=== PATIENT | male | born 1985 | race Caucasian/White ===

== ENCOUNTER 2016-06-14 15:15 | Emergency (ER) | payer OTHER ==
[~2016-06-14] VITALS: Ht 165.1 cm; Wt 80.1 kg
[~2016-06-14 15:15] MED LIST: LANTUS 10100 UNITS/ SC; METHADONE 22 MG/1 ML PO; NICOTINE PATCH1 EAC2 TD; NOVOLOG PE100 UNITS/ SC; PROZAC40 MG PO
[2016-06-14 15:52] LABS: POINT-OF-CARE METER ID UU13113778
[2016-06-14] MEDS ORDERED: METHADONE 22 MG/1 ML PO (16:40)
[2016-06-14 17:05] LABS: HEMATOCRIT 38.7 % (38.0-50.0); MCH 31.8 PG (29.0-34.0); MCHC 33.3 G/DL (30.0-36.0); MCV 95.3 FL (86-99); MEAN PLAT.VOLUME 9.9 uM^3 (9.0-12.4); PLATELET COUNT 381 K/uL (156-360); RBC DIS.WIDTH-CV 11.9 % (11.8-14.6); RBC DIS.WIDTH-SD 41.5 % (39-53); RED BLOOD COUNT 4.06 M/uL (4.00-5.50); WHITE BLOOD COUNT 8.5 K/uL (4.1-10.2)
[2016-06-14 17:14] LABS: CHLORIDE 95 mEq/L (99-109); POTASSIUM 4.1 mEq/L (3.7-5.4); SODIUM 136 mEq/L (136-147)
[2016-06-14 17:16] LABS: GLUCOSE 335 mg/dL (70-99)
[2016-06-14 17:17] LABS: ANION GAP 12 MEQ/L (2-14)
[2016-06-14 17:19] LABS: SERUM ETHYL ALCOHOL < 10 mg/dL
[2016-06-14 17:20] LABS: GFR ESTIMATE (CALCULATED) > 59 mL/min/
[2016-06-14 17:21] LABS: UREA NITROGEN (BUN) 14 mg/dL (9-23)
[2016-06-14 21:07] LABS: ADD MIUA? NO; BILIRUBIN NEGATIVE; BLOOD NEGATIVE; COLOR YELLOW ((YELLOW)); GLUCOSE (STRIP) >=500; KETONES 5; LEUKOCYTES NEGATIVE; NITRITE NEGATIVE; PROTEIN (STRIP) NEGATIVE; SPECIFIC GRAVITY 1.027 (1.000-1.030); UCUL ADDED? NO; UROBILINOGEN 0.2 MG/DL (0.2-1.0)
[2016-06-14 21:25] LABS: AMPHETAMINE NEGATIVE (500 ng/mL); BARBITURATES NEGATIVE (200 ng/mL); BENZODIAZEPINES NEGATIVE (150 ng/mL); COCAINE NEGATIVE (150 ng/mL); INTERNAL CONTROLS VALID? YES; METHADONE PRESUMPTIVE POSITIVE (200 ng/mL); METHAMPHETAMINE NEGATIVE (500 ng/mL); OPIATES (MORPHINE) NEGATIVE (100 ng/mL); OXYCODONE NEGATIVE (100 ng/mL); PHENCYCLIDINE NEGATIVE (25 ng/mL); PROPOXYPHENE NEGATIVE (300 ng/mL); THC CANNABINOIDS NEGATIVE (50 ng/mL); TRICYCLIC ANTIDEPRESSANTS NEGATIVE (300 ng/mL)
[2016-06-14] MEDS ORDERED: NARCAN4 MG NS (21:51)
[2016-06-14 22:03] VITALS: BP 110/72
== END 2016-06-14 22:05 | disposition home or self-care (01) ==
LOC: EME 15:15
PROVIDERS: Emergency Medicine
DX: T40.3X1A Poisoning by methadone, accidental (unintentional), initial encounter (principal); R41.82 Altered mental status, unspecified; E10.65 Type 1 diabetes mellitus with hyperglycemia; F17.200 Nicotine dependence, unspecified, uncomplicated; F11.20 Opioid dependence, uncomplicated; Z79.4 Long term (current) use of insulin
CPT/HCPCS: 80048; 81003; 82948; 85027; 93005; 99281; 99284; G0480

== ENCOUNTER 2016-06-15 12:35 | Emergency (ER) | payer OTHER ==
[~2016-06-15] VITALS: Ht 165.1 cm; Wt 80.1 kg
[~2016-06-15 12:35] MED LIST changes: +NARCAN4 MG NS
[2016-06-15 13:45] LABS: POINT-OF-CARE METER ID UU13113778
[2016-06-15 14:16] LABS: HEMATOCRIT 40.4 % (38.0-50.0); MCH 31.6 PG (29.0-34.0); MCHC 32.9 G/DL (30.0-36.0); MEAN PLAT.VOLUME 10.2 uM^3 (9.0-12.4); PLATELET COUNT 350 K/uL (156-360); RBC DIS.WIDTH-CV 11.8 % (11.8-14.6); RBC DIS.WIDTH-SD 41.5 % (39-53); RED BLOOD COUNT 4.21 M/uL (4.00-5.50); WHITE BLOOD COUNT 7.6 K/uL (4.1-10.2)
[2016-06-15 14:17] LABS: CARBON DIOXIDE (BICARBONATE) 33.2 MEQ/L (20-31)
[2016-06-15 14:24] LABS: CHLORIDE 93 mEq/L (99-109); SODIUM 132 mEq/L (136-147)
[2016-06-15 14:28] LABS: ANION GAP 12 MEQ/L (2-14); POTASSIUM 5.1 mEq/L (3.7-5.4); TOTAL BILIRUBIN 2.1 mg/dL (0.0-1.0)
[2016-06-15 14:30] LABS: ALKALINE PHOSPHATASE 112 IU/L (3-129); GFR ESTIMATE (CALCULATED) > 59 mL/min/
[2016-06-15 14:31] LABS: UREA NITROGEN (BUN) 17 mg/dL (9-23)
[2016-06-15 14:35] LABS: GLUCOSE 590 mg/dL (70-99)
[2016-06-15 15:12] LABS: ADD MIUA? NO; BILIRUBIN NEGATIVE; BLOOD NEGATIVE; COLOR YELLOW ((YELLOW)); GLUCOSE (STRIP) >=500; KETONES 5; LEUKOCYTES NEGATIVE; NITRITE NEGATIVE; PROTEIN (STRIP) NEGATIVE; SPECIFIC GRAVITY 1.027 (1.000-1.030); UCUL ADDED? NO; UROBILINOGEN 0.2 MG/DL (0.2-1.0)
[2016-06-15 16:12] LABS: INFLUENZA A VIRAL ANTIGEN NEGATIVE; INFLUENZA B VIRAL ANTIGEN NEGATIVE
[2016-06-15 17:09] LABS: POINT-OF-CARE METER ID UU13113702
[2016-06-15 18:10] VITALS: BP 105/60
[2016-06-16 12:37] LABS: POINT-OF-CARE METER ID UU13113702
[2016-06-16] MEDS ORDERED: LANTUS 10100 UNITS/ SC (20:49)
== END 2016-06-15 18:12 | disposition home or self-care (01) ==
LOC: EME 12:35
PROVIDERS: Nurse Practitioner Family
DX: E11.65 Type 2 diabetes mellitus with hyperglycemia (principal); T40.3X1A Poisoning by methadone, accidental (unintentional), initial encounter; K59.00 Constipation, unspecified; F17.200 Nicotine dependence, unspecified, uncomplicated
CPT/HCPCS: 74020; 80053; 81003; 82010; 82803; 82948; 85027; 87502; 99281; 99285; J7030

== ENCOUNTER 2016-06-16 17:17 | Observation (INO) | payer OTHER ==
[~2016-06-16] VITALS: Ht 165.1 cm; Wt 79.8 kg
[2016-06-16 18:15] LABS: POINT-OF-CARE METER ID UU14100415
[2016-06-16 18:21] LABS: EOSINOPHIL COUNT 0.1 K/uL (0-0.3); HEMATOCRIT 37.3 % (38.0-50.0); IMMATURE GRANULOCYTE (%) 0.4 % (0.0-0.7); IMMATURE GRANULOCYTE COUNT 0.1 K/uL; LYMPHOCYTE COUNT 2.3 K/uL (1.0-2.8); MCH 31.6 PG (29.0-34.0); MCHC 32.4 G/DL (30.0-36.0); MCV 97.4 FL (86-99); MEAN PLAT.VOLUME 9.8 uM^3 (9.0-12.4); MONOCYTE (%) 6.3 % (3-12); MONOCYTE COUNT 0.8 K/uL (0-0.8); NEUTROPHIL (%) 73.3 % (45-76); PLATELET COUNT 351 K/uL (156-360); RBC DIS.WIDTH-SD 43.5 % (39-53); RED BLOOD COUNT 3.83 M/uL (4.00-5.50)
[2016-06-16 18:22] LABS: WHITE BLOOD COUNT 12.3 K/uL (4.1-10.2)
[2016-06-16 18:28] LABS: CHLORIDE 102 mEq/L (99-109); SODIUM 138 mEq/L (136-147)
[2016-06-16 18:31] LABS: ANION GAP 10 MEQ/L (2-14)
[2016-06-16 18:34] LABS: ALKALINE PHOSPHATASE 107 IU/L (3-129); GFR ESTIMATE (CALCULATED) > 59 mL/min/
[2016-06-16 18:35] LABS: UREA NITROGEN (BUN) 9 mg/dL (9-23)
[2016-06-16 18:49] LABS: GLUCOSE 191 mg/dL (70-99); POTASSIUM 3.9 mEq/L (3.7-5.4)
[2016-06-16] MEDS ORDERED: LANTUS 10100 UNITS/ SC (20:49)
[2016-06-16 22:14] LABS: SERUM ETHYL ALCOHOL < 10 mg/dL
[2016-06-16 22:29] VITALS: BP 127/89
[2016-06-16 22:48] LABS: AMPHETAMINE NEGATIVE (500 ng/mL); BARBITURATES NEGATIVE (200 ng/mL); BENZODIAZEPINES NEGATIVE (150 ng/mL); COCAINE NEGATIVE (150 ng/mL); INTERNAL CONTROLS VALID? YES; METHADONE PRESUMPTIVE POSITIVE (200 ng/mL); METHAMPHETAMINE NEGATIVE (500 ng/mL); OPIATES (MORPHINE) NEGATIVE (100 ng/mL); OXYCODONE NEGATIVE (100 ng/mL); PHENCYCLIDINE NEGATIVE (25 ng/mL); PROPOXYPHENE NEGATIVE (300 ng/mL); THC CANNABINOIDS NEGATIVE (50 ng/mL); TRICYCLIC ANTIDEPRESSANTS NEGATIVE (300 ng/mL)
[2016-06-17 04:36] VITALS: BP 145/79
[2016-06-17 07:30] VITALS: BP 127/80
[2016-06-17 07:43] LABS: POINT-OF-CARE METER ID UU13113831
[2016-06-17 11:34] VITALS: BP 139/93
[2016-06-17 11:58] LABS: Estimated Average Glucose 217 mg/dL (70-123); HEMOGLOBIN A1c (GLYCOHEMOGLOB) 9.2 % HGB (Below 5.7)
[2016-06-17 12:30] LABS: POINT-OF-CARE METER ID UU14162513
[2016-06-17] MEDS ORDERED: NICOTINE PATCH1 EAC2 TD (14:25)
[2016-06-17] MEDS ORDERED: LANTUS 10100 UNITS/ SC (14:39)
[2016-06-17 16:34] LABS: POINT-OF-CARE METER ID UU14162513
== END 2016-06-17 17:13 | disposition home or self-care (01) ==
LOC: EME 17:17 → EDOF 20:50 → 5WEST 20:50 → EDOF 20:50 → 5WEST 22:18
PROVIDERS: Emergency Medicine; Hospitalist
DX: T40.3X1A Poisoning by methadone, accidental (unintentional), initial encounter (principal); F11.20 Opioid dependence, uncomplicated; E10.65 Type 1 diabetes mellitus with hyperglycemia; F32.9 Major depressive disorder, single episode, unspecified; F17.200 Nicotine dependence, unspecified, uncomplicated
CPT/HCPCS: 80053; 80306 90; 81003; 82948; 83036; 85025; 93005; 99281; 99285; G0378; G0480; J1815; J7030